=== PATIENT | male | born 1970 | race Two or more races ===

== ENCOUNTER → 2019-01-31 | Emergency (ER) | payer OTHER ==
[~2019-01-31] VITALS: Ht 175.3 cm; Wt 88.5 kg
[~2019-01-31] MED LIST: ATORVASTATIN CA10 MG; LOSARTAN POTAS100 MG; METFORMIN HCL500 MG; ZOLOFT100 MG
== END | disposition home or self-care (01) ==
LOC: ER 20:56
DX: R04.0 Epistaxis (principal)